=== PATIENT | female | born 1945 | race Caucasian/White ===

== ENCOUNTER 2025-01-29 06:13 | Day surgery (SDC) | payer MEDICARE, OTHER ==
[2025-01-28 14:42] LABS: MEAN PLATELET VOLUME 9.2 FL (7.4-10.4); PRE OP HEMATOCRIT 43.0 % (35.0-45.0); PRE OP HEMOGLOBIN 14.3 g/dL (12.0-16.0); PRE OP PLATELET COUNT 151 X10'3 (140-440); PRE OP WHITE BLOOD COUNT 7.9 10'3 (4.8-10.8); RED CELL DISTRIBUTION WIDTH 14.4 % (11.5-14.5)
[2025-01-28 15:01] LABS: CREATININE 0.84 MG/DL (0.40-0.90); PRE OP ALT 21 U/L (30-65); PRE OP ANION GAP 5 (8-16); PRE OP AST 19 U/L (10-37); PRE OP BILIRUB, TOTAL 1.8 MG/DL (0.0-1.0); PRE OP GLUCOSE 91 MG/DL (70-104); PRE OP POTASSIUM 4.0 MMOL/L (3.4-5.1); PRE OP SODIUM 141 MMOL/L (135-145); TOTAL CARBON DIOXIDE 30.8 MMOL/L (24-32); eGFR 66 ML/MIN
[~2025-01-29] VITALS: Ht 182.9 cm; Wt 54.0 kg
[2025-01-29] VITALS (15 sets, daily range): BP systolic 138–183; BP diastolic 68–80; PULSE 60–67; RESP 9–16; TEMP 97.6; O2SAT 96–100
[2025-01-29] MEDS: ceFAZolin 2gm/dext,iso 50mL 50 ML IV ONE (05:30)
[~2025-01-29 06:13] MED LIST: [UNRECOGNIZED DRUG - OTHER] PO
[2025-01-29] MEDS ORDERED: BUPIVAcaine 0.5% inj/PF 0 ML ONE (06:44)
[2025-01-29] MEDS ORDERED: LIDOcaine 1% (10mg/ml)w/preservative inj. 20ml MDV ONE (06:44)
[2025-01-29] MEDS: ringers solution, lacted 1,000 ML IV SCH (06:45)
[2025-01-29] MEDS ORDERED: LIDOcaine 1% 30ml preserv. free vial ONE (07:06)
[2025-01-29] MEDS ORDERED: vancomycin 1,000mg inj ONE (07:07)
[2025-01-29] MEDS ORDERED: HYDROmorphone/PF 0.2 MG/ML SYRINGE IV PRN (07:40)
[2025-01-29] MEDS ORDERED: ondansetron/PF 4mg/2ml inj IV PRN (07:40)
[2025-01-29] MEDS ORDERED: ringers solution, lacted 1,000 ML IV SCH (07:40)
[2025-01-29] MEDS ORDERED: propofol 10mg/ml 20ml vial IV ONE (08:05)
[2025-01-29] MEDS ORDERED: fentaNYL/PF 50MCG/1 ML 2ML syringe ONE (08:07)
[2025-01-29] MEDS ORDERED: midazolam 1 mg/ML 2ml injection ONE (08:09)
[2025-01-29] MEDS: acetaminophen 1,000mg/100ml IV 100 ML IV PRN (09:28)
--- NOTE | 2025-01-29 09:30 | OPERATIVE REPORT ---
Operative Report Operative Report Cardiovascular surgery operative report 29 January 2025 Preoperative diagnosis sick sinus syndrome Postop diagnosis: Same Procedure: Implantation of DDDR permanent pacemaker using a [employer] pulse generator model number [id number], serial number [id number], right atrial lead model number [id number] serial number be [id number] and right ventricular lead model number [id number] serial number be [id number] Surgeon: Dr. Robbie Guillen Complications: None EBL: 5 cc Anesthesia local with 1% lidocaine approximately 12 cc with monitored anesthesia coverage by Dr. Houston Procedure: The patient is taken to the operating room placed in supine position. Following the administration of intravenous sedation and placement of appropriate lines the anterior chest was prepped and draped sterilely. The left prepectoral region was infiltrated with 1% lidocaine to include skin, subcutaneous tissue as well as pectoralis major muscle fascia. Transverse incision was created and carried down through skin and subcutaneous tissue sharply using electrocautery for hemostasis. A pocket was developed along the inferior portion of the incision. This was then packed with an antibiotic- soaked sponge. Using the Seldinger technique two guidewires were passed via the left subclavian vein into the right atrium. Tear-away sheaths were used to implant the leads which were positioned under fluoroscopic control. The 1st lead placed was the right ventricular lead. It was passed with the tricuspid valve and directed toward the mid septum were screwed into place. It was tested. It was found to have a sensing R-wave of 4.6 mV with impedance of 589 Ohms at 5 volts. Its threshold was 1 volt. The right atrial lead was then advanced in the right atrium. Using AJ stylet was directed toward the anterolateral atrial wall were screwed into place. It was tested. It was found to have a sensing P-wave of 2 mV with a pacing impedance of 513 Ohms at 5 volts. It is a pacing threshold was also 1 volt. These leads were left with sufficient slack to inhibit dislodgement. Then secured to the anterior pectoralis major muscle fascia with interrupted 2-0 Ethibond. The leads were attached to the pulse generator. This has placed within the pocket coiling all excess lead between the generator and the muscle. The generator was then secured with the muscle of the interrupted 0 Ethibond suture. The pocket was copiously irrigated with antibiotic solution. The incision was then closed by reapproximating the subcutaneous tissue with interrupted 2-0 Vicryl and the skin with a running 4-0 Monocryl subcuticular suture. Steri-Strips were applied to skin and a Bioclusive dressing placed. The patient has left arm was placed in the sling. She was then awakened and returned to the recovery room in stable condition, having tolerated the procedure satisfactorily. There were no complications. Sponge, needle and instrument counts were correct x2 at the end of the case. ROBBIE GUILLEN III, MD Jan 29, 2025 09:30
--- NOTE | 2025-01-29 10:18 | RADIOLOGY REPORT ---
CHEST RADIOGRAPH Indication:post pacemeaker implant Technique: Single frontal view of the chest was obtained Comparison: none FINDINGS: Lines and Tubes: Left-sided pacemaker. Lungs: No focal consolidation. Pleura: No effusion. No pneumothorax. Cardiomediastinal contours: Unremarkable Bones: No acute osseous abnormality. IMPRESSION: No acute cardiopulmonary disease.
== END 2025-01-29 11:30 | disposition home or self-care (01) ==
LOC: SSTAY O 06:13 → PAS 11:30
PROVIDERS: ATTEND Thoracic Surgery (Cardiothoracic Vascular Surgery)
DX: I49.5 Sick sinus syndrome (principal); I48.91 Unspecified atrial fibrillation; Z90.89 Acquired absence of other organs
CPT/HCPCS: 33208; 36415; 71045; 80053; 82948; 85025; A4215; A4565; A4615; A4618; A6258; A7000; C1785; J0131; J0690; J2003; J2250; J2270; J2704; J3010; J3490; J7030; J7120; Z7506; Z7512; Z7610; J3373